=== PATIENT | female | born 1980 | race Caucasian/White ===

== ENCOUNTER → 2019-08-05 | Outpatient (CLI) | payer OTHER ==
--- NOTE | 2019-08-05 12:59 | RADIOLOGY REPORT (SQ) ---
EXAM DESCRIPTION: U/S ABDOMEN LIMITED W/O DOP COMPLETED DATE/TIME: 08/05/2019 9:25 am REASON FOR STUDY: R11.0 NAUSEA R11.0 NAUSEA COMPARISON: None. TECHNIQUE: Dynamic and static grayscale images acquired of the abdomen and recorded on PACS. Additio nal selected color Doppler and spectral images recorded. LIMITATIONS: None. FINDINGS: PANCREAS: The visualized portions of the pancreas appear normal. LIVER: Heterogeneous echotexture of the hepatic parenchyma without a contour deformity. LIVER VASCULATURE: Hepatopetal directional flow within the portal veins. GALLBLADDER: The gallbladder wall measures 1.8 mm in thickness. There is no cholelithiasis, sludge o r pericholecystic fluid. ULTRASOUND-DETECTED HAYNES'S SIGN: Negative. INTRAHEPATIC DUCTS AND COMMON DUCT: The CBD measures 4 mm in diameter. The intrahepatic bile ducts a re normal in caliber. INFERIOR VENA CAVA: Patent. AORTA: No aneurysm. RIGHT KIDNEY: The right kidney measures 12 cm in length. There is no hydronephrosis. PERITONEAL AND RIGHT PLEURAL SPACE: No ascites or effusions. OTHER: No other findings. IMPRESSION: 1. Heterogeneous echotexture of the hepatic parenchyma without a contour abnormality or discernible mass. 2. Normal appearance of the gallbladder. TECHNICAL DOCUMENTATION: JOB ID: [id number] [email or web address]- All Rights Reserved Reading location - IP/workstation name: [email or web address]
== END ==
LOC: RAD 08:46
PROVIDERS: ATTEND Physician Assistant
DX: R11.0 Nausea (principal)
CPT/HCPCS: 76705